=== PATIENT | male | born 1935 | race Caucasian/White ===

== ENCOUNTER 2020-09-16 18:55 | Emergency (ER) | payer OTHER ==
[~2020-09-16] VITALS: Ht 185.4 cm; Wt 79.4 kg
[2020-09-16] MEDS ORDERED: Lovastatin20 MG PO (19:12)
[2020-09-16] MEDS ORDERED: REPATHA SU140 MG/1 M SC (19:13)
[2020-09-16] MEDS ORDERED: METF500 PO (19:13)
[2020-09-16] MEDS ORDERED: AMLO5 PO (19:14)
[2020-09-16] MEDS ORDERED: FINA5 PO (19:15)
[2020-09-16] MEDS ORDERED: LOSA25 PO (19:15)
[2020-09-16] MEDS ORDERED: Zyloprim100 MG PO (19:16)
[2020-09-16] MEDS ORDERED: SULTRIDS PO (19:18)
[2020-09-16] MEDS ORDERED: FENO48 PO (19:18)
[2020-09-16] MEDS ORDERED: ASPI81CH PO (19:22)
== END 2020-09-16 21:38 | disposition home or self-care (01) ==
LOC: ER 18:55
DX: S00.81XA Abrasion of other part of head, initial encounter (principal); I10 Essential (primary) hypertension; E11.40 Type 2 diabetes mellitus with diabetic neuropathy, unspecified; Z79.84 Long term (current) use of oral hypoglycemic drugs; Z79.899 Other long term (current) drug therapy; W18.30XA Fall on same level, unspecified, initial encounter; Y92.009 Unspecified place in unspecified non-institutional (private) residence as the place of occurrence of the external cause
CPT/HCPCS: 70450; 73600; 93005; 93010; 99284-25

== ENCOUNTER → 2021-12-20 | Outpatient (CLI) | payer OTHER ==
[~2021-12-20] MED LIST: AMLO5 PO; ASPI81CH PO; FENO48 PO; FINA5 PO; LOSA25 PO; Lovastatin20 MG PO; METF500 PO; REPATHA SU140 MG/1 M SC; SULTRIDS PO; Zyloprim100 MG PO
== END | disposition home or self-care (01) ==
LOC: LAB SHORT 12:13 → PLD 12:13
DX: D03.4 Melanoma in situ of scalp and neck (principal)
CPT/HCPCS: 88305

== ENCOUNTER 2022-06-06 14:46 | Emergency (ER) | payer OTHER ==
[~2022-06-06] VITALS: Ht 185.4 cm; Wt 78.9 kg
[2022-06-06 16:20] LABS: Calcium, Ionized (POC) 1.19 mmol/L (1.10-1.46); Chloride (POC) 107 mmol/L (98-108); Creatinine (POC) 0.7 mg/dL (0.8-1.3); Glucose (ISTAT POC) 146 mg/dL (70-99); Hemoglobin (POC) 10.9 g/dL (13.5-17.5); Potassium (POC) 4.5 mmol/L (3.5-5.5); Sodium (POC) 138 mmol/L (135-148); Total CO2 (POC) 21 mmol/L (21-32)
== END 2022-06-06 16:21 | disposition home or self-care (01) ==
LOC: ER 14:46
PROVIDERS: Physician Assistant
DX: E11.649 Type 2 diabetes mellitus with hypoglycemia without coma (principal); Z79.899 Other long term (current) drug therapy; Z79.82 Long term (current) use of aspirin; Z79.84 Long term (current) use of oral hypoglycemic drugs; I10 Essential (primary) hypertension; E11.40 Type 2 diabetes mellitus with diabetic neuropathy, unspecified
CPT/HCPCS: 80047; 85014

== ENCOUNTER 2022-09-29 22:06 | Emergency (ER) | payer OTHER ==
[~2022-09-29] VITALS: Ht 182.9 cm; Wt 83.9 kg
[2022-09-29 23:33] LABS: BASOPHILS ABSOLUTE AUTO 0.04 K/mm3 (0.00-0.23); BASOPHILS PERCENT AUTO 0 % (0-2); EOSINOPHILS ABSOLUTE AUTO 0.15 K/mm3 (0.00-0.68); EOSINOPHILS PERCENT AUTO 2 % (0-6); Hematocrit 35.4 % (37.0-53.0); Hemoglobin 11.9 g/dL (13.5-17.5); IMMATURE GRAN ABSOLUTE AUTO 0.07 K/mm3 (0.00-0.10); IMMATURE GRAN PERCENT AUTO 1 % (0-1); LYMPHOCYTES ABSOLUTE AUTO 1.64 K/mm3 (0.84-5.20); LYMPHOCYTES PERCENT AUTO 16 % (21-46); MONOCYTES ABSOLUTE AUTO 0.58 K/mm3 (0.16-1.47); MONOCYTES PERCENT AUTO 6 % (4-13); Mean Corpuscular HGB 32.1 pg (26.0-34.0); Mean Corpuscular HGB Conc 33.6 g/dL (31.5-36.5); Mean Corpuscular Volume 95 fL (80-100); NEUTROPHILS PERCENT AUTO 75 % (41-73); Platelet Count 158 K/mm3 (150-400); RDW Coefficient Variation 13.1 % (11.7-14.2); RDW Standard Deviation 45.1 fL (35.1-46.3); Red Blood Cell Count 3.71 M/mm3 (4.30-5.90); White Blood Cell Count 10.08 K/mm3 (4.00-11.30)
[2022-09-29 23:48] LABS: International Normalized Ratio 1.14; Prothrombin Time Results 11.9 Sec (9.7-11.5)
[2022-09-29 23:52] LABS: Albumin, Blood 3.4 g/dL (3.4-5.0); Albumin/Globulin Ratio 0.8 (0.8-1.8); Bilirubin, Total 0.3 mg/dL (0.1-1.0); Bun/Creatinine Ratio 39.6 (12.0-20.0); Calcium, Blood 9.6 mg/dL (8.5-10.1); Creatinine, Blood 0.91 mg/dL (0.60-1.20); Potassium, Blood 4.8 mmol/L (3.5-5.5); Total Protein, Blood 7.4 g/dL (6.4-8.2)
[2022-09-30] MEDS ORDERED: IMIPRAMINE HCL PO (05:13)
[2022-09-30] MEDS ORDERED: LOSA50 PO (05:13)
[2022-09-30] MEDS ORDERED: TAMSULOSIN HCL0.4 M1 PO (05:14)
[2022-09-30] MEDS ORDERED: METO50ER PO (05:14)
== END 2022-09-30 01:54 | disposition short-term general hospital (02) ==
LOC: ER 22:06
PROVIDERS: Student in an Organized Health Care Education/Training Program
DX: S06.5XAA Traumatic subdural hemorrhage with loss of consciousness status unknown, initial encounter (principal); W18.30XA Fall on same level, unspecified, initial encounter; J96.00 Acute respiratory failure, unspecified whether with hypoxia or hypercapnia; R11.10 Vomiting, unspecified; I10 Essential (primary) hypertension; E11.40 Type 2 diabetes mellitus with diabetic neuropathy, unspecified; Z79.899 Other long term (current) drug therapy; Z79.84 Long term (current) use of oral hypoglycemic drugs; Z79.82 Long term (current) use of aspirin
CPT/HCPCS: 31500; 51702; 70450; 71045; 80053; 82947; 85025; 85610; 85730; 86850; 86900; 86901; 93005; 93010; 94002; J1953; J2250; J2704; J3010; J7030; J7050

== ENCOUNTER 2023-04-29 16:21 | Inpatient (IN) | payer OTHER ==
[~2023-04-29] VITALS: Ht 185.4 cm; Wt 71.9 kg
[~2023-04-29 16:21] MED LIST changes: +IMIPRAMINE HCL PO; +LOSA50 PO; +METO25ER PO; +TAMSULOSIN HCL0.4 M1 PO
[2023-04-29 16:47] LABS: BASOPHILS ABSOLUTE AUTO 0.03 K/mm3 (0.00-0.23); BASOPHILS PERCENT AUTO 0 % (0-2); EOSINOPHILS ABSOLUTE AUTO 0.15 K/mm3 (0.00-0.68); EOSINOPHILS PERCENT AUTO 2 % (0-6); Hematocrit 32.1 % (37.0-53.0); Hemoglobin 10.5 g/dL (13.5-17.5); IMMATURE GRAN ABSOLUTE AUTO 0.03 K/mm3 (0.00-0.10); IMMATURE GRAN PERCENT AUTO 0 % (0-1); LYMPHOCYTES ABSOLUTE AUTO 2.78 K/mm3 (0.84-5.20); LYMPHOCYTES PERCENT AUTO 28 % (21-46); MONOCYTES ABSOLUTE AUTO 0.84 K/mm3 (0.16-1.47); MONOCYTES PERCENT AUTO 8 % (4-13); Mean Corpuscular HGB 32.6 pg (26.0-34.0); Mean Corpuscular HGB Conc 32.7 g/dL (31.5-36.5); Mean Corpuscular Volume 100 fL (80-100); Mean Platelet Volume 12.2 fL (9.1-12.4); NEUTROPHILS ABSOLUTE AUTO 6.13 K/mm3 (1.96-9.15); NEUTROPHILS PERCENT AUTO 62 % (41-73); Platelet Count 140 K/mm3 (150-400); RDW Coefficient Variation 13.7 % (11.7-14.2); RDW Standard Deviation 49.5 fL (35.1-46.3); Red Blood Cell Count 3.22 M/mm3 (4.30-5.90); White Blood Cell Count 9.96 K/mm3 (4.00-11.30)
[2023-04-29 16:58] LABS: Albumin/Globulin Ratio 0.8 (0.8-1.8); Bilirubin, Total 0.3 mg/dL (0.1-1.0); Calcium, Blood 9.2 mg/dL (8.5-10.1); Creatinine, Blood 1.6 mg/dL (0.60-1.20); Globulin, Blood 3.8 g/dL (2.2-4.0); Potassium, Blood 4.4 mmol/L (3.5-5.5); Total Protein, Blood 6.8 g/dL (6.4-8.2)
[2023-04-29 18:18] LABS: International Normalized Ratio 1.17; Prothrombin Time Results 12.2 Sec (9.7-11.5)
[2023-04-29] MEDS ORDERED: Cipro500 MG PO (21:05)
[2023-04-29] MEDS ORDERED: FURO40 PO (21:17)
--- NOTE | 2023-04-29 23:37 | NUR ---
NOTIFIED DR. JENNINGS OF [facility] DEPRESSION REPORTED ON TELE. PATIENT WAS ASYMPTOMATIC, IS SINUS ANDERSON IN THE 50'S. NO ORDERS GIVEN AT THIS TIME. RECOMMENDED EKG IF PATIENT BECOMES SYMPTOMATIC.
--- NOTE | 2023-04-30 00:15 | NUR ---
ADMITTING NOTE A/OX4, ROOM AIR, [place], WEARS GLASSES. TWO JOSE ANTONIO TO THE BACK OF THE HEAD FROM SYNCOPAL EPISODE, GROUND LEVEL FALL. PAIN 07/17. TYLENOL GIVEN IN ED. LR @100 ML/HR. SMALL STAGE 2 WOUND TO RIGHT BUTTOCK, SEE PICTURE IN CHART. FALL RISK PRECUAUTIONS IN PLACE, BED ALARM ON, BED LOCKED IN LOW POSITION, NONSKID SOCKS ON, CALL LIGHT IN REACH. ABLE TO MAKE NEEDS KNOWN.
[2023-04-30 04:39] VITALS: BP 168/62
[2023-04-30 05:56] LABS: Albumin, Blood 2.9 g/dL (3.4-5.0); Albumin/Globulin Ratio 0.7 (0.8-1.8); Bilirubin, Total 0.4 mg/dL (0.1-1.0); Bun/Creatinine Ratio 35.8 (12.0-20.0); Calcium, Blood 8.8 mg/dL (8.5-10.1); Creatinine, Blood 1.34 mg/dL (0.60-1.20); Globulin, Blood 3.9 g/dL (2.2-4.0); Potassium, Blood 4.1 mmol/L (3.5-5.5); Total Protein, Blood 6.8 g/dL (6.4-8.2)
[2023-04-30 07:44] VITALS: BP 169/67
--- NOTE | 2023-04-30 09:15 | NUR ---
Called dr jorgensen- Pt here for syncope and collapse. Hr 50-60 t/o the night. Hr 58 on morning vitals, order to hold until md sees the pt.
[2023-04-30 15:40] VITALS: BP 137/52
--- NOTE | 2023-04-30 19:42 | NUR ---
SHIFT SUMMARY- PT HAS HAD NO ACUTE CHANGE T/O THE DAY, SON AT THE BEDSIDE AT THE TIME OF BEDSIDE REPORT. LR WAS ORDERED FOR 2 BAGS. IT WAS STOPPED TODAY FOR PHYSICAL THERAPY TO WORK ON PT BALANCE, IT WAS STOPPED FOR A WHILE, THEN RESTARTED, NOT QUITE FINISHED AT THE TIME OF SHIFT CHANGE. PT IN BED AT THE TIME OF BEDSIDE REPORT NO S&S OF DISTRESS.
[2023-05-01 02:34] VITALS: BP 158/62
--- NOTE | 2023-05-01 04:35 | NUR ---
SHIFT SUMMARY A/OX4. ROOM AIR. 1 PERSON ASSIST WITH WALKER TO BATHROOM. 2 JOSE ANTONIO TO BACK OF HEAD. SCD'S IN PLACE. ABLE TO MAKE NEEDS KNOWN. SHIFT UNREMARKABLE. CALL LIGHT IN REACH. BED LOCKED IN LOW POSITION, NONSKID SOCKS ON.
[2023-05-01 07:08] VITALS: BP 175/63
[2023-05-01 09:11] LABS: Bun/Creatinine Ratio 32.1 (12.0-20.0); Calcium, Blood 9.2 mg/dL (8.5-10.1); Creatinine, Blood 1.06 mg/dL (0.60-1.20); Potassium, Blood 4.4 mmol/L (3.5-5.5)
[2023-05-01] MEDS ORDERED: INSULIN GL100 UNIT/2 SC (11:16)
--- NOTE | 2023-05-01 12:57 | NUR ---
DISCHARGE NOTE- PT AND NEPHEW WERE GIVEN VERBAL AND WRITTEN DISCHARGE INSTRUCTIONS AND ACKNOWLEDGED UNDERSTANDING OF THEM. PT NEPHEW ASSISTED HIM TO THE BATHROOM AND GETTING DRESSED AND INTO THE WC. PT ESCORTED OUT VIA WC BY THE LAB ASST. NO S&S OF DISTRESS AT THE TIME OF DISCHARGE.
== END 2023-05-01 12:54 | disposition home or self-care (01) | DRG 312 ==
LOC: ER 16:21 → MEDS 16:22 → ENPENDDIS 05-01 10:57 → MEDS 05-01 12:54
PROVIDERS: Emergency Medicine; Family Medicine; Internal Medicine; Student in an Organized Health Care Education/Training Program; ADMIT Student in an Organized Health Care Education/Training Program
PROC: 0HQ0XZZ Repair Scalp Skin, External Approach (ICD-10-PCS; principal; 2023-04-29)
DX: I95.1 Orthostatic hypotension (principal); N17.9 Acute kidney failure, unspecified; T46.5X5A Adverse effect of other antihypertensive drugs, initial encounter; E86.1 Hypovolemia; E11.22 Type 2 diabetes mellitus with diabetic chronic kidney disease; I12.9 Hypertensive chronic kidney disease with stage 1 through stage 4 chronic kidney disease, or unspecified chronic kidney disease; N18.31 Chronic kidney disease, stage 3a; S01.01XA Laceration without foreign body of scalp, initial encounter; W18.30XA Fall on same level, unspecified, initial encounter; N40.0 Benign prostatic hyperplasia without lower urinary tract symptoms; M10.9 Gout, unspecified; N41.1 Chronic prostatitis; I44.0 Atrioventricular block, first degree; D64.9 Anemia, unspecified; R00.1 Bradycardia, unspecified; E78.5 Hyperlipidemia, unspecified; E11.42 Type 2 diabetes mellitus with diabetic polyneuropathy; F17.220 Nicotine dependence, chewing tobacco, uncomplicated; Z95.1 Presence of aortocoronary bypass graft; Z79.82 Long term (current) use of aspirin; Z79.84 Long term (current) use of oral hypoglycemic drugs
CPT/HCPCS: 12001; 36415; 70450; 80048; 80053; 82947; 83735; 83880; 84484; 85025; 85610; 90471; 90715; 93005; 93010; 96360-59; 96361; 97110; 97116; 97162; 97165; 97530; 97535; 99285-25; A9270; G0378; J7030; J7120

== ENCOUNTER 2023-05-25 10:54 | Inpatient (IN) | payer OTHER ==
[~2023-05-25] VITALS: Ht 185.4 cm; Wt 78.5 kg
[~2023-05-25 10:54] MED LIST changes: +Cipro500 MG PO; +FURO40 PO; +INSULIN GL100 UNIT/2 SC
[2023-05-25 12:32] LABS: BASOPHILS ABSOLUTE AUTO 0.04 K/mm3 (0.00-0.23); BASOPHILS PERCENT AUTO 0 % (0-2); EOSINOPHILS PERCENT AUTO 1 % (0-6); Hematocrit 30.3 % (37.0-53.0); Hemoglobin 9.9 g/dL (13.5-17.5); IMMATURE GRAN ABSOLUTE AUTO 0.07 K/mm3 (0.00-0.10); IMMATURE GRAN PERCENT AUTO 1 % (0-1); LYMPHOCYTES ABSOLUTE AUTO 1.33 K/mm3 (0.84-5.20); LYMPHOCYTES PERCENT AUTO 13 % (21-46); MONOCYTES ABSOLUTE AUTO 0.62 K/mm3 (0.16-1.47); MONOCYTES PERCENT AUTO 6 % (4-13); Mean Corpuscular HGB 32.6 pg (26.0-34.0); Mean Corpuscular HGB Conc 32.7 g/dL (31.5-36.5); Mean Corpuscular Volume 100 fL (80-100); Mean Platelet Volume 11.8 fL (9.1-12.4); NEUTROPHILS ABSOLUTE AUTO 8.18 K/mm3 (1.96-9.15); NEUTROPHILS PERCENT AUTO 79 % (41-73); Platelet Count 140 K/mm3 (150-400); RDW Coefficient Variation 13.7 % (11.7-14.2); RDW Standard Deviation 49.1 fL (35.1-46.3); Red Blood Cell Count 3.04 M/mm3 (4.30-5.90); White Blood Cell Count 10.34 K/mm3 (4.00-11.30)
[2023-05-25 12:46] LABS: Albumin, Blood 2.9 g/dL (3.4-5.0); Albumin/Globulin Ratio 0.7 (0.8-1.8); Bilirubin, Total 0.2 mg/dL (0.1-1.0); Bun/Creatinine Ratio 38.4 (12.0-20.0); Calcium, Blood 8.6 mg/dL (8.5-10.1); Creatinine, Blood 0.99 mg/dL (0.60-1.20); Globulin, Blood 3.9 g/dL (2.2-4.0); Potassium, Blood 4.8 mmol/L (3.5-5.5); Total Protein, Blood 6.8 g/dL (6.4-8.2)
[2023-05-25 12:47] LABS: International Normalized Ratio 1.12; Prothrombin Time Results 11.7 Sec (9.7-11.5)
[2023-05-25] MEDS ORDERED: ALLO100 PO (14:56)
[2023-05-25 15:54] VITALS: BP 143/58
--- NOTE | 2023-05-25 19:18 | NUR ---
SHIFT SUMMARY S/P L HIP FX, A/OX4, VSS, TOLERATING PO, PAIN MANAGED PER EMAR, ORIENTED TO HIS ROOM, PLAN FOR SURGERY TOMORROW, PATIENT AND HIS SON IS AWARE OF THE PLAN. NO ACUTE EVENTS THIS SHIFT, CALL LIGHT IN REACH.
[2023-05-25 19:20] VITALS: BP 127/59
[2023-05-26] VITALS (13 sets, daily range): BP systolic 100–1112; BP diastolic 43–60
[2023-05-26 05:16] LABS: Hematocrit 28.6 % (37.0-53.0); Hemoglobin 9.3 g/dL (13.5-17.5); Mean Corpuscular HGB 32.5 pg (26.0-34.0); Mean Corpuscular HGB Conc 32.5 g/dL (31.5-36.5); Mean Corpuscular Volume 100 fL (80-100); Mean Platelet Volume 12.7 fL (9.1-12.4); Platelet Count 146 K/mm3 (150-400); RDW Coefficient Variation 13.7 % (11.7-14.2); RDW Standard Deviation 49.6 fL (35.1-46.3); Red Blood Cell Count 2.86 M/mm3 (4.30-5.90); White Blood Cell Count 11.26 K/mm3 (4.00-11.30)
[2023-05-26 05:38] LABS: Bun/Creatinine Ratio 26.6 (12.0-20.0); Calcium, Blood 8.5 mg/dL (8.5-10.1); Creatinine, Blood 1.69 mg/dL (0.60-1.20); Potassium, Blood 5.1 mmol/L (3.5-5.5)
--- NOTE | 2023-05-26 06:02 | NUR ---
SHIFT SUMMARY PT IS HERE ON THE UNIT AFTER SUSTAINING A LEFT HIP FX FROM A GLF AT HOME. PT HAS BEEN NPO SINCE MIDNIGHT FOR POSSIBLE INTRAMEDULLARY GAMMA NAILING THIS MORNING (05/26/23). PT'S PAIN HAS BEEN MEDICATED PER EMAR AND THE PT HAS BEEN PLACED INTO A GOWN AFTER MOVING THE EXTRA SHEETS OUT FROM UNDER HIM FROM THE ED. PT PLACED ON TELEMETRY PER ORDER AND THE TELE DESK CALLED AT 0440 TO REPORT A "HERE AND THERE RUN OF VENTRICULAR TRIGEMINY". ASIDE FROM THAT REPORT, NO OTHER ACUTE EVENTS OCCURRED OVERNIGHT. VITAL SIGNS ARE STABLE. BED IS IN LOWEST POSITION, CALL LIGHT IS WITHIN REACH.
[2023-05-26 09:08] LABS: Magnesium, Blood 1.4 mg/dL (1.6-2.4); Phosphorus, Blood 4.2 mg/dL (2.5-4.9)
[2023-05-26 16:57] LABS: Source, Urine Foley catheter
[2023-05-26 17:03] LABS: Appearance, Urine Turbid (Clear); Bilirubin, Urine Neg (Neg); Blood, Urine 3+ (Neg); Color, Urine Yellow (P-Yellow); Glucose Qualitative, Urine Neg (Neg); Ketones, Urine Neg (Neg); Leukocyte Esterase, Urine 3+ (Neg); Nitrite, Urine Neg (Neg); Protein, Urine 3+ (Neg); Urobilinogen, Urine NORM (Normal)
[2023-05-26 17:10] LABS: Red Blood Cells, Urine TNTC /hpf (0-2); White Blood Cells, Urine TNTC /hpf (0-5)
[2023-05-26 17:11] LABS: Bacteria Many /hpf; Squamous Epithelial Cells Rare /hpf (Few)
[2023-05-26 17:12] LABS: Amorphous Light (0-Heavy); Hyaline Casts 0-2 /lpf (0-2); Renal Epithelial Few /hpf (0-Rare)
--- NOTE | 2023-05-26 17:55 | NUR ---
SHIFT SUMMARY POD0 L GAMMA NAIL, A/OX4, VSS, TOLERATING PO, PAIN WELL MANAGED, RETENTION AFTER SURGERY AND HAD TO STRAIGHT CATH 1X (SEE BLADDER MANAGEMENT). NO OTHER EVENTS THIS SHIFT, CALL LIGHT IN REACH.
[2023-05-27 01:06] VITALS: BP 122/59
[2023-05-27 04:08] VITALS: BP 137/56
[2023-05-27 05:03] LABS: Hemoglobin 8.2 g/dL (13.5-17.5); Mean Corpuscular HGB 32.8 pg (26.0-34.0); Mean Corpuscular HGB Conc 32.8 g/dL (31.5-36.5); Mean Corpuscular Volume 100 fL (80-100); Mean Platelet Volume 12.2 fL (9.1-12.4); Platelet Count 121 K/mm3 (150-400); RDW Coefficient Variation 13.6 % (11.7-14.2); RDW Standard Deviation 49.2 fL (35.1-46.3); White Blood Cell Count 16.19 K/mm3 (4.00-11.30)
[2023-05-27 05:26] LABS: Albumin, Blood 2.6 g/dL (3.4-5.0); Anion Gap 5 mmol/L (6-16); Blood Urea Nitrogen 58 mg/dL (8-24); Bun/Creatinine Ratio 40.6 (12.0-20.0); CO2, Blood 24 mmol/L (21-32); Calcium, Blood 8.5 mg/dL (8.5-10.1); Chloride, Blood 109 mmol/L (98-108); Creatinine, Blood 1.43 mg/dL (0.60-1.20); Glomerular Filtration Rate 47 (60-); Glucose, Blood 184 mg/dL (70-99); Phosphorus, Blood 2.8 mg/dL (2.5-4.9); Potassium, Blood 5.2 mmol/L (3.5-5.5); Sodium, Blood 138 mmol/L (136-145)
--- NOTE | 2023-05-27 05:58 | NUR ---
SHIFT SUMMARY PT IS POD#1 AFTER A LEFT INTRAMEDULLARY GAMMA HIP NAILING D/T A GLF AT HOME. PT'S SON REPORTS SOME DELIRIUM FROM THE PT AND THIS RN HAS NOTICED THE PT EXPERIENCING SOME CONFUSION THIS SHIFT. ATTEMPTED TO GET THE PT OOB WITH SUBSTANTIAL EFFORT (2 PERSON MAX ASSIST). PT'S BLOOD SUGAR WAS HIGH AT HS CHECK (349). GAVE INSULIN PER EMAR AND IT HAS COME DOWN TO 184 PER LAB DRAW THIS AM. PT BEING STRAIGHT CATHED PER POLICY AND RETENTION. BED IS IN LOWEST POSITION, CALL LIGHT IS WITHIN REACH.
[2023-05-27 07:12] VITALS: BP 141/57
[2023-05-27 14:26] VITALS: BP 100/43
--- NOTE | 2023-05-27 18:48 | NUR ---
SHIFT SUMMARY POD1 L HIP NAILING, AQUACEL APPLIED TODAY. A&OX1-2/PLEASANT AND COOPERATIVE WITH CARE, VSS/2LNC/BIOX ON, PAIN MANAGED, MAURICIO PO, VOIDING, SMALL AMTS IN ATTENDS AND URINAL/STRAIGHT CATH X1, 2 PP MAX ASSIST/OOB IN CHAIR THIS AM. WILL REPORT TO ONCOMING JD VERDIN.
[2023-05-27 19:39] VITALS: BP 130/51
[2023-05-28 02:48] VITALS: BP 143/53
[2023-05-28 04:21] LABS: Hematocrit 22.6 % (37.0-53.0); Hemoglobin 7.5 g/dL (13.5-17.5); Mean Corpuscular HGB 32.6 pg (26.0-34.0); Mean Corpuscular HGB Conc 33.2 g/dL (31.5-36.5); Mean Corpuscular Volume 98 fL (80-100); Mean Platelet Volume 12.5 fL (9.1-12.4); Platelet Count 108 K/mm3 (150-400); RDW Coefficient Variation 13.9 % (11.7-14.2); RDW Standard Deviation 48.8 fL (35.1-46.3); White Blood Cell Count 9.94 K/mm3 (4.00-11.30)
--- NOTE | 2023-05-28 04:25 | NUR ---
SHIFT SUMMARY NOC. PT A/O X3 ASIDE FROM DATE AND TIME. PT MEDICATED FOR PAIN X1 WITH RELIEF OF SX. LEFT HIP AQUACEL DRESSINGS C/D/I. PT NEEDING STRAIGHT CATH DUE TO URINARY RETENTION. PT TOLERATING PO INTAKE. PT RESTED WITH EYES CLOSED AND CALL LIGHT IN REACH.
[2023-05-28 04:42] LABS: Bun/Creatinine Ratio 49.6 (12.0-20.0); Calcium, Blood 8.4 mg/dL (8.5-10.1); Creatinine, Blood 1.21 mg/dL (0.60-1.20); Potassium, Blood 5.4 mmol/L (3.5-5.5)
[2023-05-28 07:07] VITALS: BP 137/49
[2023-05-28 14:23] VITALS: BP 134/46
--- NOTE | 2023-05-28 18:45 | NUR ---
TRANSFER SUMMARY PT A&O3, VSS/2LNC/TELE NSR 70s, MAURICIO PO, STRAIGHT CATH 950/BS 831 MLS- PT UNABLE TO VOID EVEN WHILE STANDING/DENIES ANY SENSATION OF HAVING TO VOID, 3 PP MAX TRANSFER TO [facility] W/FWW/GB/CUES, PAIN MANAGED, AQUACEL CDI, CYNTHIA HOSE ON, IV DC'D. LEFT VIA [facility] WITH SON AT HIS SIDE, SON PACKED CPAP AND ALL OTHER PERSONAL ITEMS INCLUDING HEARING AIDS, DENTURES WORN BY PT AND PT CELL PHONE. REPORT CALLED TO CORDELIA AT [facility] AT [id number].
== END 2023-05-28 18:49 | DRG 481 ==
LOC: ER 10:54 → SURS 12:12
PROVIDERS: Orthopaedic Surgery; ADMIT Internal Medicine
PROC: 0QH736Z Insertion of Intramedullary Internal Fixation Device into Left Upper Femur, Percutaneous Approach (ICD-10-PCS; principal; 2023-05-26 09:30)
DX: S72.142A Displaced intertrochanteric fracture of left femur, initial encounter for closed fracture (principal); F05 Delirium due to known physiological condition; N39.0 Urinary tract infection, site not specified; N13.8 Other obstructive and reflux uropathy; N17.9 Acute kidney failure, unspecified; B95.2 Enterococcus as the cause of diseases classified elsewhere; N40.1 Benign prostatic hyperplasia with lower urinary tract symptoms; E11.22 Type 2 diabetes mellitus with diabetic chronic kidney disease; I12.9 Hypertensive chronic kidney disease with stage 1 through stage 4 chronic kidney disease, or unspecified chronic kidney disease; N18.30 Chronic kidney disease, stage 3 unspecified; E78.5 Hyperlipidemia, unspecified; I25.10 Atherosclerotic heart disease of native coronary artery without angina pectoris; W19.XXXA Unspecified fall, initial encounter; M10.9 Gout, unspecified; E83.42 Hypomagnesemia; E11.42 Type 2 diabetes mellitus with diabetic polyneuropathy; Z98.890 Other specified postprocedural states; Z79.899 Other long term (current) drug therapy; Z95.1 Presence of aortocoronary bypass graft; Z85.828 Personal history of other malignant neoplasm of skin; Z79.4 Long term (current) use of insulin; Z60.2 Problems related to living alone; Z79.82 Long term (current) use of aspirin; Z79.2 Long term (current) use of antibiotics; Z79.01 Long term (current) use of anticoagulants; Z87.891 Personal history of nicotine dependence
CPT/HCPCS: 36415; 70450; 73502; 80048; 80053; 80069; 81001; 82947; 83735; 84100; 85025; 85027; 85610; 87077; 87086; 87186; 94660; 94762; 96374; 96375; 96376; 97110; 97110-CQ; 97116; 97162; 99285-25; A9270; C1713; C1769; J0690; J0696; J1100; J1170; J1650; J1815; J2250; J2405; J2704; J3010; J3370; J3475; J7030; J7120